=== PATIENT | female | born 1995 | race Caucasian/White ===

== ENCOUNTER 2016-04-23 00:49 | Emergency (ER) | payer OTHER ==
--- NOTE | 2016-04-23 00:56 | PDOC ---
History of Present Illness - General Chief Complaint: Respiratory Stated Complaint: FEVER/COLD/BODY ACHES Time Seen by Provider: 04/23/16 00:56 - History of Present Illness Initial Comments: This 21-year-old college student with a history of cold-induced bronchospasm, but no other significant past medical history is brought in by ambulance with several hour history of fever/chills, body aches, nonproductive cough and mild nausea. She has not taken her temperature or taken any medications for symptoms. She denies vomiting or diarrhea. She has not had wheezing or shortness of breath. Patient did not receive an influenza immunization this year. No known close sick contacts, although patient lives in a dormitory. Medications Albuterol inhaler when necessary (does not currently have it with her). No known ALLERGIES Past History - Past Medical History Allergies/Adverse Reactions: Allergies Allergy/AdvReac Type Severity Reaction Status Date / Time No Known Allergies Allergy Verified 04/23/16 00:51 Home Medications: Ambulatory Orders Albuterol Sulfate Inhaler - [Ventolin HFA Inhaler -] 2 inh PO Q6H PRN #1 inh 09/30 Review of Systems - Review of Systems Able to Perform ROS?: Yes Comments:: 12 point review of systems is negative except for what is noted in the history of present illness *Physical Exam - Physical Exam Comments: GENERAL: The patient is awake, alert, and fully oriented, in no acute distress. HEAD: Normal with no signs of trauma. EYES: Pupils equal, round and reactive to light, extraocular movements intact, sclera anicteric, conjunctiva clear with no pallor. ENT: moist mucous membranes. Ears normal, nares patent, oropharynx clear without exudates. NECK: Normal range of motion, supple without lymphadenopathy, JVD, or masses. LUNGS: Breath sounds equal, clear to auscultation bilaterally. No wheeze/ crackles. HEART: Regular rate and rhythm, normal S1 and S2 without murmur or rub. ABDOMEN: Soft/nontender/nondistended. BS wnl. No guarding or rebound. No palpable masses. No hepatosplenomegaly. EXTREMITIES: Normal range of motion, no edema. No clubbing or cyanosis. No cords, erythema, or tenderness. NEUROLOGICAL: Cranial nerves II through XII grossly intact. Normal speech, normal gait. PSYCH: Normal mood, normal affect. SKIN: Warm, Dry, normal turgor, no rashes or lesions noted. Medical Decision Making - Medical Decision Making Clinical presentation most consistent with viral syndrome. Since symptoms have been present only for a few hours, treatment with Tamiflu may be indicated. Nasopharyngeal swab sent for influenza testing. Albuterol inhaler prescription will be transmitted to local pharmacy, so patient can have this. It was discussed with the patient to use this inhaler if she has any wheezing during times of the acute viral syndrome, in light of her previous history of bronchospasm. She will bedischarged with instructions to rest without attending classes for the next 48 hours. She should drink plenty of fluids. She will be contacted regarding results of the influenza testing 04/23/16 03:50 nasopharyngeal swab negative for Influenza. Patient contacted and results discussed with her. Discharge instructions repeated and patient urged to fill prescription for albuterol inhaler *DC/Admit/Observation/Transfer Diagnosis at time of Disposition: Viral syndrome - Discharge Dispostion Disposition: HOME Condition at time of disposition: Stable - Prescriptions Prescriptions: Albuterol Sulfate Inhaler - [Ventolin HFA Inhaler -] 2 inh PO Q6H PRN #1 inh PRN Reason: Wheezing - Patient Instructions Printed Discharge Instructions: DI for Viral Syndrome Additional Instructions: rest drink plenty of fluids no classes for the next 2 days motrin/aleve/tylenol as needed for fever/pain albuterol inhaler as needed for wheezing/shortness of breath return to ER if fever is persistently high or you have severe cough - Post Discharge Activity Work/School Note: Back to School
[2016-04-23 00:57] VITALS: BP 128/80; PULSE 114; BMI 22.6
[2016-04-23] MEDS ORDERED: IBUPROFEN 600 MG TABLET (FP) PO ONE ×2 (00:57→01:00)
[2016-04-23 01:34] VITALS: TEMP 100.2
== END 2016-04-23 01:35 | disposition home or self-care (01) ==
LOC: FER 00:49
DX: B34.9 Viral infection, unspecified (principal); Z87.09 Personal history of other diseases of the respiratory system
CPT/HCPCS: 87804; 99281-25